=== PATIENT | male | born 1990 | race African-American/Black ===

== ENCOUNTER 2017-03-16 00:16 | Emergency (ER) | payer SELFPAY ==
[~2017-03-16 00:16] MED LIST: ALBUTEROL17 GM INH; COMBIVENT MININEB INH; PREDNISONE10 MG/DOSE PO; ZITHROMAX500 MG PO
== END 2017-03-16 01:16 | disposition home or self-care (01) ==
LOC: CED 00:16
DX: Z53.21 Procedure and treatment not carried out due to patient leaving prior to being seen by health care provider (principal)